=== PATIENT | female | born 1935 | race Caucasian/White ===

== ENCOUNTER 2017-09-26 11:13 | Emergency (ER) | payer MEDICARE, BC ==
--- NOTE | 2017-09-26 11:42 | EDM.PDOC ---
ED HPI GENERAL MEDICAL PROBLEM - General Chief Complaint: Neuro Symptoms/Deficits Stated Complaint: MEDICAL VIA [facility]TH Time Seen by Provider: 09/26/17 11:25 Source of Information: Reports: EMS, Old Records History Limitations: Reports: Other (No report from [facility] either verbally or written, patient has dementia and cannot tell us anything.) - History of Present Illness INITIAL COMMENTS - FREE TEXT/NARRATIVE: 82 yo female with a hx of dementia was sent from the memory care unit of a local [facility] with worsening of her confusion over the past ? few weeks. What we know was from EMS who transported as the [facility] did not contact us or send a written report. She has never been her at [facility] so we have no records on her. A med list only was sent with EMS from the [facility]. Vitals were stable per EMS. Onset: Gradual, Unknown/Unsure Duration: Day(s):, Week(s): (?) Location: Reports: Head Quality: Reports: Other (No pain reported.) Severity: Moderate Improves with: Reports: None Worsens with: Reports: Other (? 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: Other (see below) (none) - Related Data Allergies Allergy/AdvReac Type Severity Reaction Status Date / Time donepezil Allergy Cannot Verified 09/26/17 12:20 Remember Home Meds: Home Meds Aspirin [Halfprin] 81 mg PO DAILY 09/26/17 [History] Hydrocodone/Acetaminophen [Corona 5-325 Tablet] 1 - 2 each PO Q4H PRN #30 tablet 09/26/17 [Rx] ED ROS GENERAL - Review of Systems Review Of Systems: Unable To Obtain (due to dementia, report from EMS was only about increased confusion over days or weeks.) ED EXAM, GENERAL - Physical Exam Exam: See Below Exam Limited By: No Limitations General Appearance: Alert, WD/WN, No Apparent Distress Eye Exam: Bilateral Eye: Normal Inspection Ears: Normal External Exam, Normal Canal, Hearing Grossly Normal, Normal TMs Ear Exam: Bilateral Ear: Auricle Normal, Canal Normal, TM normal Nose: Normal Inspection, Normal Mucosa, No Blood Throat/Mouth: Normal Inspection, Normal Lips, Normal Oropharynx, Normal Voice, No Airway Compromise Head: Atraumatic, Normocephalic Neck: Normal Inspection Respiratory/Chest: No Respiratory Distress, Lungs Clear, Normal Breath Sounds, No Accessory Muscle Use Cardiovascular: Regular Rate, Rhythm, No Edema GI/Abdominal: Soft, Non-Tender, No Distention Back Exam: Normal Inspection. No: CVA Tenderness (R), CVA Tenderness (L) Extremities: Normal Inspection, Normal Range of Motion, Non-Tender, No Pedal Edema Neurological: Alert, CN II-XII Intact, No Motor/Sensory Deficits, Confused, Disoriented, Memory Loss Remote Events, Memory Loss Recent Events, Other ( cooperative) Psychiatric: Normal Affect, Normal Mood Skin Exam: Warm, Dry, Intact, Normal Color, No Rash Lymphatic: No Adenopathy Course - Vital Signs Text/Narrative:: Daughter showed up eventually and filled us in on what's been happening. Fell a couple days ago and has not been assessed since then. Still having pain. Feels she is less confused today than yesterday. Last Recorded V/S: Last Vital Signs Temp 36.1 C 09/26/17 12:01 Pulse 88 09/26/17 12:01 Resp 20 09/26/17 12:01 BP 105/55 L 09/26/17 12:01 Pulse Ox 94 L 09/26/17 12:01 - Orders/Labs/Meds Orders: Active Orders 24 hr Category Date Time Status Hip Min 2V or 3V Rt [CR] Stat Exams 09/26/17 12:06 Taken UA W/MICROSCOPIC [URIN] Stat Lab 09/26/17 11:18 Uncollected Labs: Laboratory Tests 09/26/17 09/26/17 09/26/17 Range/Units 12:00 12:00 12:00 WBC 8.2 (4.5-11.0) K/uL RBC 3.38 (3.30-5.50) M/uL Hgb 9.1 L (12.0-15.0) g/dL Hct 28.8 L (36.0-48.0) % MCV 85 (80-98) fL MCH 27 (27-31) pg MCHC 32 (32-36) % Plt Count 241 (150-400) K/uL PT 27.7 H (9.5-12.0) sec INR 2.49 H (0.80-1.20) Sodium 138 L (140-148) mmol/L Potassium 4.2 (3.6-5.2) mmol/L Chloride 103 (100-108) mmol/L Carbon Dioxide 27 (21-32) mmol/L Anion Gap 12.2 (5.0-14.0) mmol/L BUN 18 (7-18) mg/dL Creatinine 1.0 (0.6-1.0) mg/dL Est Cr Clr Drug Dosing 38.98 mL/min Estimated GFR (MDRD) 53 L (>60) Glucose 110 H (74-106) mg/dL Calcium 9.1 (8.5-10.1) mg/dL Troponin I < 0.017 (0.000-0.056) ng/mL TSH, Ultra Sensitive 1.021 (0.358-3.740) uIU/mL Meds: Medications Discontinued Medications Generic Name Dose Route Start Last Admin Trade Name Freq PRN Reason Stop Dose Admin Acetaminophen 650 mg 09/26/17 12:50 09/26/17 12:57 Tylenol PO 09/26/17 12:51 650 mg NOW ONE Administration Hydrocodone Bitart/Acetaminophen 1 tab 09/26/17 12:59 Corona 325-5 Mg PO 09/26/17 13:00 ONETIME ONE - Radiology Interpretation Free Text/Narrative:: R hip X-ray negative per my interpretation. R dorene-pelvis is broken. Departure - Departure Time of Disposition: 13:15 Disposition: Home, Self-Care 01 Condition: Fair Clinical Impression: Chronic anemia Pelvic fracture Qualifiers: Encounter type: initial encounter Pelvic bone location: pubis Sublocation of pubis: unspecified portion of pubis Fracture type: closed Laterality: right Qualified Code(s): S32.501A - Unspecified fracture of right pubis, initial encounter for closed fracture - Discharge Information Prescriptions: Hydrocodone/Acetaminophen [Corona 5-325 Tablet] 1 - 2 each PO Q4H PRN #30 tablet PRN Reason: Pain Referrals: PCP,None [Primary Care Provider] - Forms: ED Department Discharge Additional Instructions: Use Corona or acetaminophen as needed for pain relief. Always use a walker for assistance with walking. F/U with your provider to adjust pain meds and to adjust physical therapy orders as needed. - My Orders Last 24 Hours: My Active Orders 09/26/17 11:18 UA W/MICROSCOPIC [URIN] Stat 09/26/17 12:06 Hip Min 2V or 3V Rt [CR] Stat - Assessment/Plan Last 24 Hours: My Active Orders 09/26/17 11:18 UA W/MICROSCOPIC [URIN] Stat 09/26/17 12:06 Hip Min 2V or 3V Rt [CR] Stat
[2017-09-26] MEDS ORDERED: Acetaminophen 325 MG Tab PO ONE (12:50)
[2017-09-26] MEDS ORDERED: Acetaminophen/HYDROcodone 325-5 MG Tab PO ONE (12:59)
--- NOTE | 2017-09-26 14:26 | CR ---
Hip Min 2V or 3V Rt INDICATION: recent fall with pain FINDINGS: Acute, moderately displaced fractures through the superior and inferior right pubic rami. M ild osteopenia.
== END 2017-09-26 14:17 | disposition home or self-care (01) ==
LOC: JP.ED 11:13
DX: S32.501A Unspecified fracture of right pubis, initial encounter for closed fracture (principal); D64.9 Anemia, unspecified; Z88.8 Allergy status to other drugs, medicaments and biological substances; X58.XXXA Exposure to other specified factors, initial encounter
CPT/HCPCS: 36415; 73502; 80048; 81001; 84443; 84484; 85027; 85610; 99284; A9270

== ENCOUNTER 2020-07-30 04:22 | Emergency (ER) | payer MEDICARE, BC ==
--- NOTE | 2020-07-30 04:49 | EDM.PDOC ---
ED HPI GENERAL MEDICAL PROBLEM - General Chief Complaint: Lower Extremity Injury/Pain Stated Complaint: MEDICAL VIA NORTH Time Seen by Provider: 07/30/20 04:45 Source of Information: Reports: Patient, RN Notes Reviewed History Limitations: Reports: Physical Impairment - History of Present Illness INITIAL COMMENTS - FREE TEXT/NARRATIVE: 85-year-old female presents emergency department today via EMS services she is a rise residing at a memory care unit history of dementia she was up walking with nursing staff going to the bathroom today fell early this morning landed on her left hip did not hit her head. However due to her dementia difficult to obtain history - Related Data Allergies Allergy/AdvReac Type Severity Reaction Status Date / Time donepezil Allergy Cannot Verified 07/30/20 04:29 Remember Home Meds: Home Meds Aspirin [Halfprin] 81 mg PO DAILY 09/26/17 [History] Ferrous Sulfate [Iron] 325 mg PO BID 09/26/17 [History] Hydrocodone/Acetaminophen [[place] 5-325 Tablet] 1 - 2 each PO Q4H PRN #30 tablet 09/26/17 [Rx] Ibandronate [Boniva] 150 mg PO ASDIRECTED 09/26/17 [History] Levothyroxine [Synthroid] 50 mcg PO ACBREAKFAST 09/26/17 [History] Ranitidine [Zantac] 75 mg PO BID 09/26/17 [History] Sennosides [Senna] 1 tab PO BEDTIME 09/26/17 [History] Sertraline HCl 100 mg PO DAILY 09/26/17 [History] Vit C/E/Zn/Coppr/Lutein/Zeaxan [Preservision Areds 2 Softgel] 2 cap PO BID 09/26/17 [History] Warfarin [Coumadin] 5 mg PO DAILY 09/26/17 [History] Past Medical History HEENT History: Reports: Cataract, Other (See Below) Other HEENT History: Vasomotor rhinitis Cardiovascular History: Reports: Afib Gastrointestinal History: Reports: GERD 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: Musculoskeletal History: Reports: Back Pain, Chronic, Fracture, Fibromyalgia, Osteoporosis Other Musculoskeletal History: Stress fracture of the pelvis Neurological History: Reports: Alzheimers Disease, Other (See Below) Other Neuro History: collapsed vertebra Psychiatric History: Reports: Anxiety, Dementia, Depression, Hallucinations Endocrine/Metabolic History: Reports: Hypothyroidism Hematologic History: Reports: Anemia, Anticoagulation Therapy - Infectious Disease History Infectious Disease History: Reports: Other (See Below) Other Infectious Disease History: unknown Social & Family History - Family History Family Medical History: Noncontributory - Tobacco Use Tobacco Use Status *Q: Never Tobacco User - Caffeine Use Caffeine Use: Reports: None - Recreational Drug Use Recreational Drug Use: No Review of Systems - Review of Systems Review Of Systems: Unable To Obtain Reason Not Obtained: Dementia ED EXAM, GENERAL - Physical Exam Exam: See Below Free Text/Narrative:: Examination of the pelvis she does not complain of pain to pelvic rocks however she does complain some palpation of the greater trochanter on the left and then pain to internal and external rotation on the right Exam Limited By: Physical Impairment General Appearance: Alert, No Apparent Distress Course - Vital Signs Last Recorded V/S: Last Vital Signs Temp 96.6 F L 07/30/20 04:29 Pulse 78 07/30/20 04:29 Resp 16 07/30/20 04:29 BP 145/57 H 07/30/20 04:29 Pulse Ox 92 L 07/30/20 04:29 Departure - Departure Time of Disposition: 06:00 Disposition: DC/Tfer to [facility] 61 Condition: Poor Clinical Impression: Contusion of left hip Qualifiers: Encounter type: initial encounter Qualified Code(s): S70.02XA - Contusion of left hip, initial encounter - Discharge Information Instructions: Contusion, [id number] Referrals: PCP,None [Primary Care Provider] - Forms: ED Department Discharge Additional Instructions: Follow-up with primary care as needed Sepsis Event Note (ED) - Evaluation Sepsis Screening Result: No Definite Risk - Focused Exam Vital Signs: Vital Signs Temp Pulse Resp BP Pulse Ox 07/30/20 04:29 96.6 F L 78 16 145/57 H 92 L - Assessment/Plan Plan: Assessment Acuity = acute Site and laterality = left hip contusion Etiology = secondary to fall Manifestations = none Location of injury = Home Lab values = plain film of pelvis right and left hip showed no acute process Plan I did review films with family plan is to discharge back to [facility] follow- up primary care as needed This note was dictated using [employer] [employer] voice recognition software please call with any questions on syntax or grammar.
--- NOTE | 2020-07-30 05:46 | CRLCR ---
INDICATION: Fall pain history of pelvic fracture TECHNIQUE: Pelvis radiograph, Hip radiograph 5 views bilateral COMPARISON: 09/26/2017 FINDINGS: Bone: No acute fractures or aggressive bone lesions are identified. Chronic fracture deformity of the right superior and inferior pubic ramus are noted. Moderate diffuse osteopenia is seen. Joint: The hip joint is unremarkable. The visualized sacroiliac joints are unremarkable in appearance. The pubic symphysis is normal in appearance. Soft tissue: Unremarkable. The visualized bowel gas pattern of the pelvis is unremarkable in appearance. No radiopaque foreign bodies are seen. IMPRESSION: 1. No acute osseous injuries or abnormalities are noted. Dictated by Nigel Colon MD @ 07/30/2020 5:45:45 AM Dictated by: Nigel Colon MD @ 07/30/2020 05:45:49 (Electronically Signed)
== END 2020-07-30 07:45 ==
LOC: JP.ED 04:22
DX: S70.02XA Contusion of left hip, initial encounter (principal); I48.91 Unspecified atrial fibrillation; K21.9 Gastro-esophageal reflux disease without esophagitis; G30.9 Alzheimer's disease, unspecified; F02.80 Dementia in other diseases classified elsewhere, unspecified severity, without behavioral disturbance, psychotic disturbance, mood disturbance, and anxiety; F41.9 Anxiety disorder, unspecified; F32.9 Major depressive disorder, single episode, unspecified; E03.9 Hypothyroidism, unspecified; Z79.82 Long term (current) use of aspirin; Z79.899 Other long term (current) drug therapy; Z79.01 Long term (current) use of anticoagulants; W18.30XA Fall on same level, unspecified, initial encounter
CPT/HCPCS: 73521; 99283-25